=== PATIENT | male | born 1940 | race Caucasian/White ===

== ENCOUNTER 2016-12-19 16:51 | Emergency (ER) | payer OTHER, MEDICARE ==
[~2016-12-19] VITALS: Ht 170.2 cm; Wt 87.9 kg
[~2016-12-19 16:51] MED LIST: ADULT LOW DOSE81 M1 PO; AMBIEN10 M1 PO; ATIVAN0.5 M1 PO; ATIVAN0.5 MG PO; Aspirin Chewable PO; Aspirin E.C. PO; Ativan PO; CITALOPRAM HBR40 M1 PO; CLINDAMYCIN HC300 MG PO; DIOVAN320 MG PO; FISH OIL SOFTG1 EACH PO; FLEXERIL10 MG PO; FLOVENT DISKUS1 DIS2 IH; LORTAB 5-325 M1 EACH PO; Mobic PO; NAPROSYN500 MG PO; NORCO 5/3251 TABLET PO; SERTRALINE HCL25 MG PO; SIMVASTATIN80 M1 PO; SIMVASTATIN80 MG PO; VALACYCLOVIR500 MG PO; VITAMIN D35000 UNI1 PO; Vitamin D PO; Zithromax PO
[2016-12-19 17:32] LABS: HEMATOCRIT 42.7 % (38.0-50.0); MCH 32.1 PG (29.0-34.0); MCHC 33.7 G/DL (30.0-36.0); MCV 95.3 FL (86-99); MEAN PLAT.VOLUME 8.5 uM^3 (9.0-12.4); PLATELET COUNT 194 K/uL (156-360); RBC DIS.WIDTH-CV 12.8 % (11.8-14.6); RED BLOOD COUNT 4.48 M/uL (4.00-5.50); WHITE BLOOD COUNT 8.5 K/uL (4.1-10.2)
[2016-12-19 17:40] LABS: CHLORIDE 103 mEq/L (99-109); POTASSIUM 4.2 mEq/L (3.7-5.4); SODIUM 140 mEq/L (136-147)
[2016-12-19 17:43] LABS: ADD MIUA? NO; BILIRUBIN NEGATIVE; BLOOD NEGATIVE; COLOR YELLOW ((YELLOW)); GLUCOSE (STRIP) NEGATIVE; KETONES NEGATIVE; LEUKOCYTES NEGATIVE; NITRITE NEGATIVE; PROTEIN (STRIP) TRACE; SPECIFIC GRAVITY 1.024 (1.000-1.030); UCUL ADDED? NO; UROBILINOGEN 0.2 MG/DL (0.2-1.0)
[2016-12-19 17:43] LABS: GLUCOSE 99 mg/dL (70-99)
[2016-12-19 17:44] LABS: ANION GAP 12 MEQ/L (2-14)
[2016-12-19 17:45] LABS: TOTAL BILIRUBIN 0.5 mg/dL (0.0-1.0)
[2016-12-19 17:46] LABS: ALKALINE PHOSPHATASE 42 IU/L (3-129); GFR ESTIMATE (CALCULATED) > 59 mL/min/
[2016-12-19 17:47] LABS: UREA NITROGEN (BUN) 14 mg/dL (9-23)
[2016-12-19 17:50] LABS: LIPASE 15 U/L (1.0-51.0)
[2016-12-19 22:18] VITALS: BP 132/78
== END 2016-12-19 22:19 | disposition home or self-care (01) ==
LOC: EME 16:51
DX: R19.7 Diarrhea, unspecified (principal); R10.9 Unspecified abdominal pain; I10 Essential (primary) hypertension; E78.5 Hyperlipidemia, unspecified; Z95.0 Presence of cardiac pacemaker; Z95.5 Presence of coronary angioplasty implant and graft; Z79.82 Long term (current) use of aspirin; Z87.891 Personal history of nicotine dependence
CPT/HCPCS: 74176; 80053; 81003; 83690; 85027; 99281; 99285; J2270; J2405; J7030

== ENCOUNTER → 2017-05-14 | Outpatient (CLI) | payer OTHER, MEDICARE | END | disposition home or self-care (01) | LOC: RAD 12:41 | DX: J32.9 Chronic sinusitis, unspecified (principal) | CPT/HCPCS: 70486 ==

== ENCOUNTER 2017-05-28 05:55 | Day surgery (SDC) | payer OTHER, MEDICARE ==
[~2017-05-28] VITALS: Ht 172.7 cm; Wt 83.9 kg
[~2017-05-28 05:55] MED LIST changes: +DIOVAN160 MG PO; +GLUCOPHAGE500 MG PO; +PROTONIX40 MG PO; +ZOCOR40 MG PO
[2017-05-28 06:38] VITALS: BP 171/83
[2017-05-28 06:47] LABS: POINT-OF-CARE METER ID UU13113694
[2017-05-28 14:35] VITALS: BP 173/82
[2017-05-28 15:35] VITALS: BP 178/90
[2017-05-28 16:00] VITALS: BP 168/84
== END 2017-05-28 16:20 | disposition home or self-care (01) ==
LOC: SDC 05:55
PROVIDERS: Otolaryngology
DX: J32.4 Chronic pansinusitis (principal); J34.2 Deviated nasal septum; I10 Essential (primary) hypertension; Z95.0 Presence of cardiac pacemaker; I25.2 Old myocardial infarction; E11.9 Type 2 diabetes mellitus without complications; Z79.82 Long term (current) use of aspirin; Z79.84 Long term (current) use of oral hypoglycemic drugs; Z88.0 Allergy status to penicillin
CPT/HCPCS: 82948; 88305; J0131; J0330; J0690; J2405; J3010; J3301; J7050

== ENCOUNTER → 2017-08-22 | Outpatient (CLI) | payer OTHER, MEDICARE ==
[~2017-08-22] VITALS: Ht 167.6 cm; Wt 83.9 kg
[~2017-08-22] MED LIST changes: +CALCIUM CITRAT250 MG PO; +CYANOCOBALAM1000 MCG PO; +FLONASE16 G1 BOTH NARES; +GLUCOSAMINE1000 MG PO; +LIPITOR10 MG PO; +LO-DOSE ASPIRIN81 M2 PO; +NON-ASPIRIN PA500 M1 PO; +TOPROL XL50 MG PO; +VALTREX50 MG/ML PO; +VITAMIN D35000 UNIT PO
[2017-08-22 09:11] LABS: POINT-OF-CARE METER ID UU14107333
== END | disposition home or self-care (01) ==
LOC: AMB 07:36
PROVIDERS: Internal Medicine Gastroenterology
PROC: 0DB68ZX Excision of Stomach, Via Natural or Artificial Opening Endoscopic, Diagnostic (ICD-10-PCS; principal; 2017-08-22)
PROC: 0DJ08ZZ Inspection of Upper Intestinal Tract, Via Natural or Artificial Opening Endoscopic (ICD-10-PCS; principal; 2017-08-22)
DX: C16.0 Malignant neoplasm of cardia (principal); K31.4 Gastric diverticulum; K25.9 Gastric ulcer, unspecified as acute or chronic, without hemorrhage or perforation; I10 Essential (primary) hypertension; E11.9 Type 2 diabetes mellitus without complications; I25.10 Atherosclerotic heart disease of native coronary artery without angina pectoris; I25.2 Old myocardial infarction; H90.5 Unspecified sensorineural hearing loss; Z95.0 Presence of cardiac pacemaker; Z87.891 Personal history of nicotine dependence; Z79.82 Long term (current) use of aspirin; Z79.84 Long term (current) use of oral hypoglycemic drugs; Z88.8 Allergy status to other drugs, medicaments and biological substances; Z88.0 Allergy status to penicillin
CPT/HCPCS: 82948; 88305; 88342 TC; C1726; J0330; J2250; J2405; J3010

== ENCOUNTER 2017-09-01 07:02 | Emergency (ER) | payer OTHER, MEDICARE ==
[~2017-09-01] VITALS: Ht 172.7 cm; Wt 83.6 kg
[2017-09-01 07:58] LABS: INFLUENZA A VIRAL ANTIGEN NEGATIVE; INFLUENZA B VIRAL ANTIGEN NEGATIVE
[2017-09-01 08:27] LABS: HEMATOCRIT 42.4 % (38.0-50.0); MCH 31.3 PG (29.0-34.0); MCV 94.6 FL (86-99); MEAN PLAT.VOLUME 8.8 uM^3 (9.0-12.4); PLATELET COUNT 177 K/uL (156-360); RBC DIS.WIDTH-CV 12.8 % (11.8-14.6); RBC DIS.WIDTH-SD 44.1 % (39-53); RED BLOOD COUNT 4.48 M/uL (4.00-5.50); WHITE BLOOD COUNT 8.8 K/uL (4.1-10.2)
[2017-09-01] MEDS ORDERED: TESSALON200 MG PO (08:28)
[2017-09-01 08:44] LABS: CHLORIDE 103 mEq/L (99-109); POTASSIUM 3.8 mEq/L (3.7-5.4); SODIUM 139 mEq/L (136-147)
[2017-09-01 08:45] LABS: GLUCOSE 153 mg/dL (70-99)
[2017-09-01 08:47] LABS: ANION GAP 11 MEQ/L (2-14)
[2017-09-01 08:49] LABS: GFR ESTIMATE (CALCULATED) > 59 mL/min/
[2017-09-01 08:50] LABS: UREA NITROGEN (BUN) 11 mg/dL (9-23)
[2017-09-01 09:01] VITALS: BP 143/72
== END 2017-09-01 09:02 | disposition home or self-care (01) ==
LOC: EME 07:02
PROVIDERS: Nurse Practitioner Family
DX: J40 Bronchitis, not specified as acute or chronic (principal); I25.2 Old myocardial infarction; E78.5 Hyperlipidemia, unspecified; Z87.891 Personal history of nicotine dependence; Z95.5 Presence of coronary angioplasty implant and graft; Z95.0 Presence of cardiac pacemaker; Z85.028 Personal history of other malignant neoplasm of stomach; Z88.0 Allergy status to penicillin; Z88.8 Allergy status to other drugs, medicaments and biological substances
CPT/HCPCS: 71020; 80048; 85027; 87502; 99281; 99284

== ENCOUNTER → 2017-10-01 | Outpatient (CLI) | payer MEDICARE ==
[~2017-10-01] MED LIST changes: +TESSALON200 MG PO
== END | disposition home or self-care (01) ==
LOC: CDC 12:21
DX: Z01.810 Encounter for preprocedural cardiovascular examination (principal); I25.2 Old myocardial infarction; Z95.0 Presence of cardiac pacemaker
CPT/HCPCS: 93000

== ENCOUNTER 2017-10-14 08:13 | Inpatient (IN) | payer OTHER, MEDICARE ==
[~2017-10-14] VITALS: Ht 172.7 cm; Wt 80.1 kg
[~2017-10-14 08:13] MED LIST changes: +DEXAMETHASONE4 MG PO; +GLUCOPHAGE XR,500 MG PO; +LORAZEPAM0.5 MG PO; +ONDANSETRON HCL4 MG PO; +OXYCODONE HCL5 MG PO; +VALSARTAN160 MG PO
[2017-10-14 08:49] LABS: EOSINOPHIL (%) 0.3 % (0-5); HEMATOCRIT 43.4 % (38.0-50.0); IMMATURE GRANULOCYTE (%) 0.8 % (0.0-0.7); IMMATURE GRANULOCYTE COUNT 0.1 K/uL; INSTRUMENT ABS NEUTROPHIL CT 7.3 K/uL; LYMPHOCYTE COUNT 1.1 K/uL (1.0-2.8); MCH 31.5 PG (29.0-34.0); MCHC 33.2 G/DL (30.0-36.0); MEAN PLAT.VOLUME 9.5 uM^3 (9.0-12.4); MONOCYTE (%) 0.5 % (3-12); NEUTROPHIL (%) 85.4 % (45-76); NEUTROPHIL COUNT 7.3 K/uL (1.8-6.4); RBC DIS.WIDTH-CV 12.9 % (11.8-14.6); RBC DIS.WIDTH-SD 44.5 % (39-53); RED BLOOD COUNT 4.57 M/uL (4.00-5.50); WHITE BLOOD COUNT 8.6 K/uL (4.1-10.2)
[2017-10-14 08:50] LABS: PLATELET COUNT 118 K/uL (156-360)
[2017-10-14 08:54] LABS: INTER. NORMALIZED RATIO 1.1; PROTHROMBIN TIME 12.2 SEC (10.2-12.9)
[2017-10-14 09:00] LABS: CHLORIDE 99 mEq/L (99-109); SODIUM 135 mEq/L (136-147)
[2017-10-14 09:02] LABS: GLUCOSE 285 mg/dL (70-99); POTASSIUM 4.7 mEq/L (3.7-5.4)
[2017-10-14 09:03] LABS: ANION GAP 11 MEQ/L (2-14)
[2017-10-14 09:04] LABS: TOTAL BILIRUBIN 1.6 mg/dL (0.0-1.0)
[2017-10-14 09:06] LABS: ALKALINE PHOSPHATASE 50 IU/L (3-129); GFR ESTIMATE (CALCULATED) > 59 mL/min/
[2017-10-14 09:07] LABS: UREA NITROGEN (BUN) 26 mg/dL (9-23)
[2017-10-14 09:09] LABS: LIPASE 11 U/L (1.0-51.0)
[2017-10-14 10:15] LABS: TROP-I INTERPRETATION NEGATIVE; TROPONIN-I 0.03 ng/mL (0.0-0.30)
[2017-10-14] MEDS ORDERED: MAGIC MOUTH WASH PO (11:30)
[2017-10-14 12:14] LABS: ADD MIUA? NO; BILIRUBIN NEGATIVE; BLOOD NEGATIVE; COLOR YELLOW ((YELLOW)); GLUCOSE (STRIP) 150; KETONES NEGATIVE; LEUKOCYTES NEGATIVE; NITRITE NEGATIVE; PROTEIN (STRIP) 30; SPECIFIC GRAVITY 1.019 (1.000-1.030); UROBILINOGEN 0.2 MG/DL (0.2-1.0)
[2017-10-14 12:51] VITALS: BP 119/74
[2017-10-14 13:37] LABS: POINT-OF-CARE METER ID UU14174216
[2017-10-14 16:13] VITALS: BP 118/67
[2017-10-14 16:30] LABS: POINT-OF-CARE METER ID UU14174216
[2017-10-14 16:46] LABS: TROP-I INTERPRETATION NEGATIVE; TROPONIN-I 0.03 ng/mL (0.0-0.30)
[2017-10-14 19:48] VITALS: BP 122/85
[2017-10-14 21:30] LABS: POINT-OF-CARE METER ID UU13113698
[2017-10-14 22:07] LABS: TROP-I INTERPRETATION NEGATIVE; TROPONIN-I 0.03 ng/mL (0.0-0.30)
[2017-10-15] VITALS (7 sets, daily range): BP systolic 91–115; BP diastolic 52–80
[2017-10-15 04:49] LABS: HEMATOCRIT 37.3 % (38.0-50.0); MCH 31.7 PG (29.0-34.0); MCHC 33.8 G/DL (30.0-36.0); MCV 93.7 FL (86-99); PLATELET COUNT 87 K/uL (156-360); RBC DIS.WIDTH-CV 12.7 % (11.8-14.6); RBC DIS.WIDTH-SD 43.9 % (39-53); RED BLOOD COUNT 3.98 M/uL (4.00-5.50); WHITE BLOOD COUNT 4.5 K/uL (4.1-10.2)
[2017-10-15 06:23] LABS: HDL CHOLESTEROL 42 MG/DL (Desirable>=40); LDL CHOLESTEROL 25 mg/dL (Desirable<100); NON-HDL CHOLESTEROL 47 mg/dL (Desirable<160); TOTAL CHOLESTEROL 89 mg/dL (Desirable<200); TRIGLYCERIDES 112 MG/DL (Normal: <150)
[2017-10-15 07:46] LABS: POINT-OF-CARE METER ID UU14174216
[2017-10-15 11:34] LABS: POINT-OF-CARE METER ID UU14174216
[2017-10-15 16:55] LABS: POINT-OF-CARE METER ID UU14174216
[2017-10-15 20:54] LABS: POINT-OF-CARE METER ID UU14314088
[2017-10-16 04:30] VITALS: BP 126/78
[2017-10-16 05:09] LABS: EOSINOPHIL (%) 0.4 % (0-5); HEMATOCRIT 37.7 % (38.0-50.0); IMMATURE GRANULOCYTE (%) 0.9 % (0.0-0.7); INSTRUMENT ABS NEUTROPHIL CT 2.5 K/uL; LYMPHOCYTE COUNT 1.8 K/uL (1.0-2.8); MCH 31.2 PG (29.0-34.0); MCHC 33.2 G/DL (30.0-36.0); MEAN PLAT.VOLUME 9.6 uM^3 (9.0-12.4); MONOCYTE (%) 2.2 % (3-12); MONOCYTE COUNT 0.1 K/uL (0-0.8); NEUTROPHIL (%) 56.2 % (45-76); NEUTROPHIL COUNT 2.5 K/uL (1.8-6.4); PLATELET COUNT 108 K/uL (156-360); RBC DIS.WIDTH-CV 12.8 % (11.8-14.6); RBC DIS.WIDTH-SD 44.4 % (39-53); RED BLOOD COUNT 4.01 M/uL (4.00-5.50); WHITE BLOOD COUNT 4.5 K/uL (4.1-10.2)
[2017-10-16 05:22] LABS: CHLORIDE 100 mEq/L (99-109); POTASSIUM 3.9 mEq/L (3.7-5.4); SODIUM 136 mEq/L (136-147)
[2017-10-16 05:23] LABS: GLUCOSE 146 mg/dL (70-99)
[2017-10-16 05:25] LABS: ANION GAP 9 MEQ/L (2-14)
[2017-10-16 05:27] LABS: GFR ESTIMATE (CALCULATED) > 59 mL/min/
[2017-10-16 05:28] LABS: UREA NITROGEN (BUN) 20 mg/dL (9-23)
[2017-10-16 07:34] VITALS: BP 121/69
[2017-10-16 07:58] LABS: POINT-OF-CARE METER ID UU14174216
[2017-10-16 11:18] LABS: POINT-OF-CARE METER ID UU14174216
[2017-10-16 11:29] VITALS: BP 112/71
[2017-10-16] MEDS ORDERED: MYCELEX10 MG MM (11:48)
== END 2017-10-16 14:12 | disposition home or self-care (01) | DRG 309 ==
LOC: EME 08:13 → 4EAST 10:51 → EDOF 10:51 → ENRESERV 10:52 → EDOF 11:08 → ENRESERV 11:51 → 4EAST 12:40
PROVIDERS: Emergency Medicine; Internal Medicine
DX: I48.1 Persistent atrial fibrillation (principal); C16.9 Malignant neoplasm of stomach, unspecified; I49.5 Sick sinus syndrome; E78.5 Hyperlipidemia, unspecified; I25.10 Atherosclerotic heart disease of native coronary artery without angina pectoris; R53.1 Weakness; K12.30 Oral mucositis (ulcerative), unspecified; F41.9 Anxiety disorder, unspecified; I10 Essential (primary) hypertension; B37.0 Candidal stomatitis; E11.9 Type 2 diabetes mellitus without complications; I25.2 Old myocardial infarction; Z95.5 Presence of coronary angioplasty implant and graft; Z92.21 Personal history of antineoplastic chemotherapy; Z87.891 Personal history of nicotine dependence; Z95.0 Presence of cardiac pacemaker; Z88.0 Allergy status to penicillin; Z88.8 Allergy status to other drugs, medicaments and biological substances; Z82.49 Family history of ischemic heart disease and other diseases of the circulatory system; Z87.11 Personal history of peptic ulcer disease; Z82.5 Family history of asthma and other chronic lower respiratory diseases; Z80.9 Family history of malignant neoplasm, unspecified
CPT/HCPCS: 71010; 71275; 80048; 80053; 80061; 81003; 82948; 83690; 84484; 85025; 85027; 85610; 93005; 93306; 99281; 99285; J1650; J1815; J7030

== ENCOUNTER 2017-11-01 17:27 | Emergency (ER) | payer OTHER, MEDICARE ==
[~2017-11-01] VITALS: Ht 172.7 cm; Wt 82.4 kg
[~2017-11-01 17:27] MED LIST changes: +ELIQUIS5 MG PO; +MAGIC MOUTH WASH PO; +MYCELEX10 MG MM
[2017-11-01 18:19] LABS: EOSINOPHIL (%) 0.3 % (0-5); HEMATOCRIT 34.7 % (38.0-50.0); IMMATURE GRANULOCYTE (%) 0.7 % (0.0-0.7); IMMATURE GRANULOCYTE COUNT 0.1 K/uL; INSTRUMENT ABS NEUTROPHIL CT 4.4 K/uL; LYMPHOCYTE COUNT 2.6 K/uL (1.0-2.8); MCH 31.3 PG (29.0-34.0); MCHC 33.1 G/DL (30.0-36.0); MCV 94.6 FL (86-99); MEAN PLAT.VOLUME 8.8 uM^3 (9.0-12.4); MONOCYTE (%) 1.4 % (3-12); MONOCYTE COUNT 0.1 K/uL (0-0.8); NEUTROPHIL (%) 61.6 % (45-76); NEUTROPHIL COUNT 4.4 K/uL (1.8-6.4); NRBC (%) 0.3 /100 WBC (0-0); PLATELET COUNT 267 K/uL (156-360); RBC DIS.WIDTH-CV 13.2 % (11.8-14.6); RBC DIS.WIDTH-SD 45.7 % (39-53); RED BLOOD COUNT 3.67 M/uL (4.00-5.50); WHITE BLOOD COUNT 7.2 K/uL (4.1-10.2)
[2017-11-01 18:28] LABS: CHLORIDE 102 mEq/L (99-109); POTASSIUM 3.9 mEq/L (3.7-5.4); SODIUM 137 mEq/L (136-147)
[2017-11-01 18:29] LABS: MAGNESIUM 1.2 mg/dL (1.3-2.7)
[2017-11-01 18:30] LABS: GLUCOSE 146 mg/dL (70-99)
[2017-11-01 18:31] LABS: ANION GAP 10 MEQ/L (2-14)
[2017-11-01 18:32] LABS: TOTAL BILIRUBIN 0.3 mg/dL (0.0-1.0)
[2017-11-01 18:33] LABS: INTER. NORMALIZED RATIO 1.4; PROTHROMBIN TIME 16.2 SEC (10.2-12.9)
[2017-11-01 18:34] LABS: ALKALINE PHOSPHATASE 49 IU/L (3-129); GFR ESTIMATE (CALCULATED) > 59 mL/min/
[2017-11-01 18:35] LABS: UREA NITROGEN (BUN) 20 mg/dL (9-23)
[2017-11-01 18:39] LABS: TROP-I INTERPRETATION NEGATIVE; TROPONIN-I 0.03 ng/mL (0.0-0.30)
[2017-11-01 18:59] LABS: ADD MIUA? NO; BILIRUBIN NEGATIVE; BLOOD NEGATIVE; COLOR YELLOW ((YELLOW)); GLUCOSE (STRIP) NEGATIVE; KETONES NEGATIVE; LEUKOCYTES NEGATIVE; NITRITE NEGATIVE; PROTEIN (STRIP) NEGATIVE; SPECIFIC GRAVITY 1.012 (1.000-1.030); UROBILINOGEN 0.2 MG/DL (0.2-1.0)
[2017-11-01 20:22] VITALS: BP 127/98
== END 2017-11-01 20:34 | disposition home or self-care (01) ==
LOC: EME 17:27
PROVIDERS: Physician Assistant Medical
DX: R53.1 Weakness (principal); C18.9 Malignant neoplasm of colon, unspecified; Z92.21 Personal history of antineoplastic chemotherapy; I10 Essential (primary) hypertension; E78.5 Hyperlipidemia, unspecified; I25.10 Atherosclerotic heart disease of native coronary artery without angina pectoris; I25.2 Old myocardial infarction; Z95.5 Presence of coronary angioplasty implant and graft; Z95.0 Presence of cardiac pacemaker; Z87.19 Personal history of other diseases of the digestive system; Z79.82 Long term (current) use of aspirin; Z87.891 Personal history of nicotine dependence; Z88.0 Allergy status to penicillin; Z88.8 Allergy status to other drugs, medicaments and biological substances
CPT/HCPCS: 71010; 80053; 81003; 83735; 84484; 85025; 85610; 87040; 93005; 99281; 99285; J7040

== ENCOUNTER 2018-01-22 09:51 | Emergency (ER) | payer OTHER, MEDICARE ==
[~2018-01-22] VITALS: Ht 172.7 cm; Wt 73.8 kg
[~2018-01-22 09:51] MED LIST changes: +DIOVAN80 MG PO; +MICRO-K10 ME2 PO; +XARELTO20 MG PO
[2018-01-22 12:43] VITALS: BP 113/60
== END 2018-01-22 13:44 ==
LOC: EME 09:51
DX: Z43.1 Encounter for attention to gastrostomy (principal); Z85.038 Personal history of other malignant neoplasm of large intestine; E78.5 Hyperlipidemia, unspecified; I10 Essential (primary) hypertension; I25.2 Old myocardial infarction; I25.10 Atherosclerotic heart disease of native coronary artery without angina pectoris; Z87.19 Personal history of other diseases of the digestive system; Z85.028 Personal history of other malignant neoplasm of stomach; Z95.0 Presence of cardiac pacemaker; Z95.5 Presence of coronary angioplasty implant and graft; Z79.82 Long term (current) use of aspirin; Z79.01 Long term (current) use of anticoagulants; Z88.0 Allergy status to penicillin; Z88.8 Allergy status to other drugs, medicaments and biological substances; Z87.891 Personal history of nicotine dependence
CPT/HCPCS: 74018; 99281; 99285

== ENCOUNTER → 2018-01-23 | Outpatient (CLI) | payer OTHER, MEDICARE | END | disposition home or self-care (01) | LOC: RAD 13:19 | DX: R13.12 Dysphagia, oropharyngeal phase (principal); K21.9 Gastro-esophageal reflux disease without esophagitis; C15.9 Malignant neoplasm of esophagus, unspecified; Z98.890 Other specified postprocedural states | CPT/HCPCS: 74230; 92611 GN; G8996 GN CK; G8997 GN CK; G8998 GN CK ==

== ENCOUNTER 2018-01-30 11:28 | Emergency (ER) | payer OTHER, MEDICARE ==
[~2018-01-30] VITALS: Ht 172.7 cm; Wt 77.9 kg
[2018-01-30 11:57] LABS: BASOPHIL (%) 0.4 % (0-1); EOSINOPHIL (%) 1.2 % (0-5); EOSINOPHIL COUNT 0.1 K/uL (0-0.3); HEMATOCRIT 36.2 % (38.0-50.0); HEMOGLOBIN 11.4 G/DL (12.5-16.6); IMMATURE GRANULOCYTE (%) 0.3 % (0.0-0.7); LYMPHOCYTE COUNT 1.5 K/uL (1.0-2.8); MCH 29.6 PG (29.0-34.0); MCHC 31.5 G/DL (30.0-36.0); MONOCYTE (%) 6.9 % (3-12); MONOCYTE COUNT 0.5 K/uL (0-0.8); NEUTROPHIL (%) 69.2 % (45-76); NEUTROPHIL COUNT 4.7 K/uL (1.8-6.4); PLATELET COUNT 269 K/uL (156-360); RBC DIS.WIDTH-CV 15.4 % (11.8-14.6); RED BLOOD COUNT 3.85 M/uL (4.00-5.50); WHITE BLOOD COUNT 6.8 K/uL (4.1-10.2)
[2018-01-30 12:06] LABS: ALBUMIN 4.1 g/dL (3.2-4.8); CHLORIDE 105 mEq/L (99-109); POTASSIUM 4.2 mEq/L (3.7-5.4); SODIUM 142 mEq/L (136-147)
[2018-01-30 12:09] LABS: GLUCOSE 120 mg/dL (70-99); TOTAL PROTEIN 6.9 g/dL (6.4-8.3)
[2018-01-30 12:11] LABS: TOTAL BILIRUBIN 0.7 mg/dL (0.0-1.0)
[2018-01-30 12:12] LABS: ALKALINE PHOSPHATASE 62 IU/L (3-129); CREATININE 0.9 mg/dL (0.6-1.3); GFR ESTIMATE (CALCULATED) > 59 mL/min/ (58.99-99999)
[2018-01-30 12:13] LABS: UREA NITROGEN (BUN) 13 mg/dL (9-23)
[2018-01-30 12:14] LABS: AST (GOT) 20 IU/L (2-34)
[2018-01-30 12:15] LABS: ALT (GPT) 15 IU/L (3-49)
[2018-01-30 14:40] VITALS: BP 138/84
== END 2018-01-30 15:01 | disposition home or self-care (01) ==
LOC: EME 11:28
PROVIDERS: Emergency Medicine
DX: R13.10 Dysphagia, unspecified (principal); C15.9 Malignant neoplasm of esophagus, unspecified; Z93.1 Gastrostomy status; I10 Essential (primary) hypertension; E78.5 Hyperlipidemia, unspecified; I25.10 Atherosclerotic heart disease of native coronary artery without angina pectoris; I25.2 Old myocardial infarction; Z95.5 Presence of coronary angioplasty implant and graft; Z87.891 Personal history of nicotine dependence; Z79.82 Long term (current) use of aspirin; Z95.0 Presence of cardiac pacemaker; Z87.19 Personal history of other diseases of the digestive system; Z88.0 Allergy status to penicillin; Z88.8 Allergy status to other drugs, medicaments and biological substances
CPT/HCPCS: 71045; 74220; 80053; 85025; 99281; 99284

== ENCOUNTER 2018-01-31 15:10 | Emergency (ER) | payer OTHER, MEDICARE ==
[~2018-01-31] VITALS: Ht 172.7 cm; Wt 75.7 kg
[2018-01-31 16:51] LABS: HEMATOCRIT 36.3 % (38.0-50.0); HEMOGLOBIN 11.6 G/DL (12.5-16.6); MCH 29.6 PG (29.0-34.0); MCV 92.6 FL (86-99); PLATELET COUNT 272 K/uL (156-360); RBC DIS.WIDTH-CV 15.4 % (11.8-14.6); RBC DIS.WIDTH-SD 51.9 % (39-53); RED BLOOD COUNT 3.92 M/uL (4.00-5.50); WHITE BLOOD COUNT 7.7 K/uL (4.1-10.2)
[2018-01-31 16:59] LABS: ALBUMIN 4.2 g/dL (3.2-4.8); CHLORIDE 106 mEq/L (99-109); POTASSIUM 4.3 mEq/L (3.7-5.4); SODIUM 139 mEq/L (136-147)
[2018-01-31 17:01] LABS: GLUCOSE 110 mg/dL (70-99)
[2018-01-31 17:03] LABS: TOTAL BILIRUBIN 0.6 mg/dL (0.0-1.0)
[2018-01-31 17:05] LABS: ALKALINE PHOSPHATASE 61 IU/L (3-129); CREATININE 0.9 mg/dL (0.6-1.3); GFR ESTIMATE (CALCULATED) > 59 mL/min/ (58.99-99999)
[2018-01-31 17:06] LABS: AST (GOT) 20 IU/L (2-34); UREA NITROGEN (BUN) 14 mg/dL (9-23)
[2018-01-31 17:08] LABS: ALT (GPT) 17 IU/L (3-49)
[2018-01-31 22:25] VITALS: BP 137/87
== END 2018-01-31 22:41 | disposition short-term general hospital (02) ==
LOC: EME 15:10
PROVIDERS: Physician Assistant
DX: R13.10 Dysphagia, unspecified (principal); I10 Essential (primary) hypertension; E78.5 Hyperlipidemia, unspecified; I25.2 Old myocardial infarction; I25.10 Atherosclerotic heart disease of native coronary artery without angina pectoris; Z79.891 Long term (current) use of opiate analgesic; Z79.82 Long term (current) use of aspirin; Z79.01 Long term (current) use of anticoagulants; Z95.0 Presence of cardiac pacemaker; Z95.5 Presence of coronary angioplasty implant and graft; Z87.891 Personal history of nicotine dependence; Z87.19 Personal history of other diseases of the digestive system; Z85.028 Personal history of other malignant neoplasm of stomach; Z85.038 Personal history of other malignant neoplasm of large intestine; Z85.01 Personal history of malignant neoplasm of esophagus; Z88.0 Allergy status to penicillin; Z88.8 Allergy status to other drugs, medicaments and biological substances
CPT/HCPCS: 80053; 81003; 85027; 87651 90; 99281; 99285

== ENCOUNTER → 2018-03-06 | Outpatient (CLI) | payer OTHER, MEDICARE ==
[~2018-03-06] VITALS: Ht 170.2 cm; Wt 80.3 kg
[~2018-03-06] MED LIST changes: +PANTOPRAZOLE SO40 MG PO
== END | disposition home or self-care (01) ==
LOC: AMB 09:33
PROVIDERS: Internal Medicine Gastroenterology
PROC: 0DJ08ZZ Inspection of Upper Intestinal Tract, Via Natural or Artificial Opening Endoscopic (ICD-10-PCS; principal; 2018-03-06)
DX: K22.2 Esophageal obstruction (principal); C16.9 Malignant neoplasm of stomach, unspecified; Z93.1 Gastrostomy status; R10.33 Periumbilical pain; Z96.89 Presence of other specified functional implants; I10 Essential (primary) hypertension; E11.9 Type 2 diabetes mellitus without complications; E78.6 Lipoprotein deficiency; Z87.891 Personal history of nicotine dependence; Z79.82 Long term (current) use of aspirin; Z88.0 Allergy status to penicillin; Z88.8 Allergy status to other drugs, medicaments and biological substances; I25.10 Atherosclerotic heart disease of native coronary artery without angina pectoris; I25.2 Old myocardial infarction; Z95.0 Presence of cardiac pacemaker
CPT/HCPCS: 82948; J0330

== ENCOUNTER 2018-04-23 13:10 | Emergency (ER) | payer OTHER, MEDICARE ==
[~2018-04-23] VITALS: Ht 172.7 cm; Wt 75.7 kg
[2018-04-23 16:03] VITALS: BP 126/86
== END 2018-04-23 16:04 | disposition home or self-care (01) ==
LOC: EME 13:10
PROC: 0D2DXUZ Change Feeding Device in Lower Intestinal Tract, External Approach (ICD-10-PCS; principal; 2018-04-23)
DX: K94.13 Enterostomy malfunction (principal); E78.5 Hyperlipidemia, unspecified; I25.10 Atherosclerotic heart disease of native coronary artery without angina pectoris; I25.2 Old myocardial infarction; Z85.038 Personal history of other malignant neoplasm of large intestine; Z85.028 Personal history of other malignant neoplasm of stomach; Z85.01 Personal history of malignant neoplasm of esophagus; Z95.0 Presence of cardiac pacemaker; Z95.5 Presence of coronary angioplasty implant and graft; Z87.891 Personal history of nicotine dependence; Z79.82 Long term (current) use of aspirin; Z88.0 Allergy status to penicillin; Z88.8 Allergy status to other drugs, medicaments and biological substances
CPT/HCPCS: 99281; 99283; C1769